=== PATIENT | male | born 2000 | race Caucasian/White ===

== ENCOUNTER 2024-04-24 13:00 | Emergency (ER) | payer OTHER ==
[~2024-04-24] VITALS: Ht 180.3 cm; Wt 99.8 kg
[~2024-04-24 13:00] MED LIST: BACTRIM DS TAB1 EACH PO
[2024-04-24 13:19] VITALS: PULSE 76; RESP 18; TEMP 98.6
[2024-04-24] MEDS ORDERED: MAGNESIUM/ALUMINUM/SIMETHICONE 30 ML UDC PO ONE (13:30)
[2024-04-24] MEDS ORDERED: BELLADONNA ALK/PHENOBARBITAL 5 ML UDC PO ONE (13:30)
[2024-04-24] MEDS ORDERED: LIDOCAINE VISC 2% SOLN 15 ML UDC PO ONE (13:30)
[2024-04-24] MEDS: KETOROLAC TROMETHAMINE 60 MG/2 ML VIAL IM ONE (13:59)
[2024-04-24 14:00] VITALS: BP 130/83; PULSE 72; RESP 16; O2SAT 100
== END 2024-04-24 14:20 | disposition home or self-care (01) ==
LOC: ER 13:07
DX: R10.13 Epigastric pain (principal); M94.0 Chondrocostal junction syndrome [Tietze]
CPT/HCPCS: 93005; 99282; J1885